=== PATIENT | female | born 1965 | race Caucasian/White ===

== ENCOUNTER → 2024-08-16 | Outpatient (CLI) | payer OTHER ==
--- NOTE | 2024-08-17 18:03 | BD ---
EXAMINATION TYPE: Axial Bone Density DATE OF EXAM: 08/16/2024 CLINICAL HISTORY: 59 years old Female. ICD-10 CODE: Z78.0 ASYMPTOMATIC MENOPAUSAL STATE , Additional History: Height: 65.7 in Weight: 168 lbs EXAM MEASUREMENTS: Bone mineral densitometry was performed using the [employer]. Bone mineral density as measured about the Lumbar spine is: ----- L1-L4(G/cm2): 1.185 T Score Values are as follows: ----- L1: 0.1 ----- L2: 0.4 ----- L3: 0.2 ----- L4: -0.5 ----- L1-L4: 0.0 Z Score Values are as follows: ----- L1: 1.0 ----- L2: 1.3 ----- L3: 1.1 ----- L4: 0.4 ----- L1-L4: 0.9 Bone mineral density baseline Bone mineral density about the R hip (g/cm2): 0.977 Bone mineral density about the L hip (g/cm2): 0.890 T Score values are as follows: -----R Neck: -1.2 -----L Neck: -1.3 -----R Total: -0.2 -----L Total: -0.9 Z Score values are as follows: -----R Neck: -0.2 -----L Neck: -0.2 -----R Total: 0.5 -----L Total: -0.2 Bone mineral density baseline FRAX%s: The graph provided illustrates a 7.7% chance for a major osteoporotic fx and a 0.6% chance fo r the hips probability for fx in 10 years time. IMPRESSION: Osteopenia (T Score between -2.5 and -1). There is slightly increased risk of fracture and the patient may be considered for treatment. Re-Screen 2-5 years. NOTE: T-SCORE=SD OF THE YOUNG ADULT MEAN. [facility], , 08/17/2024 6:01 PM
== END | disposition home or self-care (01) ==
LOC: RADBDWWP 09:03
PROVIDERS: ATTEND Family Medicine
DX: Z78.0 Asymptomatic menopausal state (principal); M85.89 Other specified disorders of bone density and structure, multiple sites
CPT/HCPCS: 77080